=== PATIENT | male | born 1960 | race Caucasian/White ===

== ENCOUNTER 2017-11-27 15:21 | Inpatient (IN) | payer BC ==
[~2017-11-27] VITALS: Ht 177.8 cm; Wt 105.8 kg
[~2017-11-27 15:21] MED LIST: CELE50CA PO; LISI40TA PO; METF1000 PO
[2017-11-27 18:00] VITALS: BP 169/93; PULSE 86; RESP 18; O2SAT 98
[2017-11-27] MEDS ORDERED: ACETAMINOPHEN/HYDROcodone 325 MG/5 MG TAB PO PRN (18:30)
[2017-11-27] MEDS ORDERED: RESP: ALBUTEROL 2.5 MG/IPRATROPIUM 0.5 MG NEB (PRN) INH (18:30)
[2017-11-27] MEDS ORDERED: MAGNESIUM HYDROXIDE SUSP 30 ML CUP PO PRN (18:30)
[2017-11-27] MEDS ORDERED: METOCLOPRAMIDE HCL 10 MG/2 ML VIAL IV PUSH PRN (18:30)
[2017-11-27] MEDS ORDERED: BISACODYL 10 MG SUPP RECTAL PRN (18:30)
[2017-11-27] MEDS ORDERED: LACTULOSE SYRUP 20 GM/30 ML CUP PO PRN (18:30)
[2017-11-27] MEDS ORDERED: SENNOSIDES 8.6 MG TAB PO PRN (18:30)
[2017-11-27] MEDS ORDERED: CHLORHEXIDINE GLUCONATE 2 % 1 PACK (2 CLOTHS) TOP PRN (18:30)
[2017-11-27] MEDS ORDERED: MISCELLANEOUS NURSING INFORMATION XX SCH (18:30)
[2017-11-27] MEDS ORDERED: ACETAMINOPHEN 325 MG TAB PO PRN (18:30)
[2017-11-27] MEDS ORDERED: niCARdipine INJ 25 MG in SODIUM CHLOR 0.9% 250 ML INJ 240 ML IV PRN (18:30)
[2017-11-27] MEDS ORDERED: LABETALOL HCL 100 MG/20 ML VIAL IV PUSH PRN (18:30)
[2017-11-27] MEDS ORDERED: LISINOPRIL 10 MG TAB PO SCH (18:30)
[2017-11-27] MEDS ORDERED: ONDANSETRON HCL 4 MG/2 ML VIAL IV PUSH PRN (18:30)
[2017-11-27] MEDS ORDERED: SODIUM CHLORIDE 0.9% FLUSH 10 ML FLUSH IV FLUSH PRN (18:30)
[2017-11-27] MEDS: LISINOPRIL 20 MG TAB PO SCH (18:45)
--- NOTE | 2017-11-27 18:57 | HHI.HP ---
HPI Service Critical Care Medicine Primary Care Physician Unknown Admission Diagnosis Diagnosis: Chief Complaint: Headache Travel History International Travel<30 Days: No Contact w/Intl Traveler <30 Da: No Traveled to Known Affected Are: No History of Present Illness History of Present Illness HPI Is a 57-year-old man presents emerged from complaining of headache and elevated blood pressure. States that he was sick with flulike symptoms for the past couple weeks. He was taking numerous nzyz-xlg-lrrlzke medications. He has a history of hypertension was taking lisinopril. States on Tuesday began feeling sick and weak and dizzy while at work. Checked his blood pressure and it was 220s over 1 teens. He went to the emergency room at [facility] where he had a workup including imaging, CT, and IV blood pressure medication. Blood pressure came down and he felt improved. They adjusted his lisinopril to 40 mg daily. Over the past 2 days he has felt progressively worse, more headache, more vomiting, more dizziness and weakness. No significant visual changes. No history of previous similar symptoms. No chest pain or trouble breathing. Symptoms are worse again and today so he came to the emergency department. Patient was evaluated in the ER at [place] and subsequently accepted for transfer [facility] ICU in [place] by Dr. Jo. I evaluated the patient following his arrival to the ICU. At that time he was resting in bed complaining of some headache. He was on nicardipine gtt. at 2.5 mg/h. He denied any chest pain or shortness of breath. Head CT done at [facility] was negative for any intracranial hemorrhage. History Past Medical History Narrative Medical Hypertension Social History Alcohol Use: No Tobacco Use: No Allergies-Medications (Allergen,Severity, Reaction): Coded Allergies: No Known Allergies (Unverified , 11/27/17) Reported Meds & Prescriptions Reported Meds & Active Scripts Active Reported Celebrex (Celecoxib) 50 Mg Cap 50 Mg PO BID Lisinopril 40 Mg Tab 40 Mg PO DAILY Metformin (Metformin HCl) 1,000 Mg Tab 1,000 Mg PO BIDPC Review of Systems Except as stated in HPI: all other systems reviewed are Neg Review of Systems ROS Per history of present illness Physical Exam Physical Exam Physical Exam Narrative GENERAL: Well-appearing 57-year-old man, no acute distress. SKIN: Focused skin assessment warm/dry. HEAD: Atraumatic. Normocephalic. EYES: Pupils equal and round. No scleral icterus. No injection or drainage. ENT: No nasal bleeding or discharge. Mucous membranes pink and moist. NECK: Trachea midline. No JVD. CARDIOVASCULAR: Regular rate and rhythm. No murmur appreciated. RESPIRATORY: No accessory muscle use. Clear to auscultation. Breath sounds equal bilaterally. GASTROINTESTINAL: Abdomen soft, non-tender, nondistended. Hepatic and splenic margins not palpable. MUSCULOSKELETAL: No obvious deformities. No clubbing. No cyanosis. No edema. NEUROLOGICAL: Awake and alert. No obvious cranial nerve deficits. Motor grossly within normal limits. Normal speech. PSYCHIATRIC: Appropriate mood and affect; insight and judgment normal. Laboratory Labs from [facility] ER reviewed unremarkable Imaging Head CT negative for ICH Caprini VTE Risk Assessment Caprini VTE Risk Assessment: Mod/High Risk (score >= 2) Caprini Risk Assessment Model Point Value = 1 Point Value = 2 Point Value = 3 Point Value = 5 Age 41-60 Minor surgery BMI > 25 kg/m2 Swollen legs Varicose veins or History of unexplained or recurrent spontaneous Oral contraceptives or hormone replacement Sepsis (< 1 month) Serious lung disease, including pneumonia (< 1 month) Abnormal pulmonary function Acute myocardial infarction Congestive heart failure (< 1 month) History of inflammatory bowel disease Medical patient at bed rest Age 61-74 Arthroscopic surgery Major open surgery (> 45 min) Laparoscopic surgery (> 45 min) Malignancy Confined to bed (> 72 hours) Immobilizing plaster cast Central venous access Age >= 75 History of VTE Family history of VTE Factor V Leiden Prothrombin [id number] Lupus anticoagulant Anticardiolipin antibodies Elevated serum homocysteine Heparin-induced thrombocytopenia Other congenital or acquired thrombophilia Stroke (< 1 month) Elective arthroplasty Hip, pelvis, or leg fracture Acute spinal cord injury (< 1 month) Prophylaxis Regimen Total Risk Factor Score Risk Level Prophylaxis Regimen 0-1 Low Early ambulation 2 Moderate Order ONE of the following: *Sequential Compression Device (SCD) *Heparin 5000 units SQ BID 3-4 Higher Order ONE of the following medications: *Heparin 5000 units SQ TID *Enoxaparin/Lovenox 40 mg SQ daily (WT < 150 kg, CrCl > 30 mL/min) *Enoxaparin/Lovenox 30 mg SQ daily (WT < 150 kg, CrCl > 10-29 mL/min) *Enoxaparin/Lovenox 30 mg SQ BID (WT < 150 kg, CrCl > 30 mL/min) AND/OR *Sequential Compression Device (SCD) 5 or more Highest Order ONE of the following medications: *Heparin 5000 units SQ TID (Preferred with Epidurals) *Enoxaparin/Lovenox 40 mg SQ daily (WT < 150 kg, CrCl > 30 mL/min) *Enoxaparin/Lovenox 30 mg SQ daily (WT < 150 kg, CrCl > 10-29 mL/min) *Enoxaparin/Lovenox 30 mg SQ BID (WT < 150 kg, CrCl > 30 mL/min) AND *Sequential Compression Device (SCD) Assessment and Plan Assessment and Plan Hypertensive urgency Diabetes mellitus Headache Plan: Neuro: Follow neuro status. Head CT negative for bleed. Cardiovascular: Nicardipine gtt. to keep SBP less than 160 mmHg. Continue lisinopril 40 mg by mouth daily. Labetalol 20 mg IV every 4 hourly when necessary for SBP greater than 160. Added Norvasc 5 mg by mouth now and daily. Pulmonary: Supplemental O2 as needed. Bronchial dilators when necessary. GI/liver: Heart healthy diet. Zofran/Phenergan when necessary for nausea vomiting. Pepcid by mouth in view of nausea vomiting. Renal/: Follow urine output, monitor BUN/creatinine electrolytes. ID: No indication for antibiotics at this time Endocrine: Continue metformin. Watch for hyperglycemia and will use SSI for glycemic control if needed Prophylaxis: Pepcid, SCDs, Lovenox Consult and transfer to hospitalist service in a.m. for further medical management. Critical care will be available if needed. Tomer Villeda MD Nov 27, 2017 18:57
[2017-11-27] MEDS: metFORMIN HCL 500 MG TAB PO SCH (19:00)
[2017-11-27] MEDS ORDERED: niCARdipine 25 MG/NS 250 ML Vial2Bag or IV room IV PRN ×2 (19:15)
[2017-11-27 20:00] VITALS: BP 152/95; PULSE 91; RESP 26; TEMP 98.3; O2SAT 92
[2017-11-27] MEDS ORDERED: ENOXAPARIN SODIUM 40 MG/0.4 ML SYRINGE SQ SCH (20:00)
[2017-11-27] MEDS: DOCUSATE SODIUM 50 MG/SENNA 8.6 MG TAB PO SCH (21:00)
[2017-11-27] MEDS: FAMOTIDINE 20 MG TAB PO SCH (21:00)
[2017-11-27] MEDS: amLODIPine BESYLATE 5 MG TAB PO SCH (21:47)
[2017-11-27] MEDS: SODIUM CHLORIDE 0.9% FLUSH 10 ML FLUSH IV FLUSH SCH (21:49)
[2017-11-28] VITALS: BP 138/73; PULSE 89; RESP 19; O2SAT 98
[2017-11-28 04:00] VITALS: BP 144/88; PULSE 83; RESP 18; O2SAT 98
[2017-11-28] MEDS ORDERED: CHLORHEXIDINE GLUCONATE 2 % 1 PACK (2 CLOTHS) TOP SCH (04:00)
[2017-11-28 05:01] LABS: AUTOMATED NEUTROPHIL # 4.7 TH/MM3 (1.8-7.7); BASOPHIL % 0.2 % (0.0-2.0); EOSINOPHIL # 0.1 TH/MM3 (0-0.4); EOSINOPHIL % 1.2 % (0.0-4.0); HEMATOCRIT 43.3 % (39.0-51.0); HEMOGLOBIN 15.1 GM/DL (13.0-17.0); LYMPH % 23.6 % (9.0-44.0); LYMPHOCYTE # 1.7 TH/MM3 (1.0-4.8); MEAN CORPUSCULAR HEMOGLOBIN 33.2 PG (27.0-34.0); MEAN CORPUSCULAR HGB CONC 34.9 % (32.0-36.0); MEAN PLATELET VOLUME 8.5 FL (7.0-11.0); MONOCYTE # 0.9 TH/MM3 (0-0.9); PLATELET COUNT 79 TH/MM3 (150-450); RED BLOOD COUNT 4.55 MIL/MM3 (4.50-5.90); RED CELL DISTRIBUTION WIDTH 14.4 % (11.6-17.2); WHITE BLOOD COUNT 7.4 TH/MM3 (4.0-11.0)
[2017-11-28 05:22] LABS: ALBUMIN 3.3 GM/DL (3.4-5.0); AST (GOT) 31 U/L (15-37); BICARBONATE 27.2 MEQ/L (21.0-32.0); BLOOD UREA NITROGEN 12 MG/DL (7-18); CALCIUM 8.9 MG/DL (8.5-10.1); CHLORIDE 102 MEQ/L (98-107); GLOMERULAR FILTRATION RATE 100 ML/MIN (>89); GLUCOSE,RANDOM 130 MG/DL (74-106); SODIUM (NA) 138 MEQ/L (136-145)
[2017-11-28 05:23] LABS: ALT (GPT) 35 U/L (12-78)
[2017-11-28 05:25] LABS: ALKALINE PHOSPHATASE 68 U/L (45-117); TOTAL BILIRUBIN ADULT 1.1 MG/DL (0.2-1.0); TOTAL PROTEIN 7.4 GM/DL (6.4-8.2)
[2017-11-28] MEDS ORDERED: POTASSIUM CHLORIDE 25 MEQ EFFERVESCENT TAB PO ONE (09:00)
--- NOTE | 2017-11-28 09:00 | HHI.PR ---
Subjective Remarks The patient was feeling well. He was looking forward to going home soon. He said that high blood pressure runs in his family. He does tend to drink alcohol a lot but has not been doing so over the past week as he has been ill. He has been taking ucjz-hgn-wjbqdat cold medications. Headache and nausea are much improved. He is tolerating a diet. Discussed with nursing at the bedside. Objective Vitals Vital Signs Date Time Temp Pulse Resp B/P (MAP) Pulse Ox O2 Delivery O2 Flow Rate FiO2 11/28/17 04:00 83 11/28/17 04:00 83 18 144/88 (106) 98 11/28/17 00:00 89 11/28/17 00:00 89 19 138/73 (94) 98 11/27/17 20:00 98.3 91 26 152/95 (114) 92 11/27/17 18:00 86 18 169/93 (118) 98 I/O 11/27/17 11/27/17 11/27/17 11/28/17 11/28/17 11/28/17 07:00 15:00 23:00 07:00 15:00 23:00 Intake Total 260 ml Output Total 625 ml Balance -365 ml Intake IV Total 260 ml Output Urine Total 625 ml # Bowel Movements 0 Result Diagram: 11/28/17 0350 11/28/17 0350 Objective Remarks GENERAL: No distress. SKIN: Focused skin assessment warm/dry. HEAD: Atraumatic. Normocephalic. EYES: Pupils equal and round. No scleral icterus. No injection or drainage. ENT: No nasal bleeding or discharge. Mucous membranes pink and moist. NECK: Trachea midline. No JVD. CARDIOVASCULAR: Regular rate and rhythm. No murmur appreciated. RESPIRATORY: No accessory muscle use. Clear to auscultation. Breath sounds equal bilaterally. GASTROINTESTINAL: Abdomen soft, non-tender, nondistended. Hepatic and splenic margins not palpable. MUSCULOSKELETAL: No obvious deformities. No clubbing. No cyanosis. No edema. NEUROLOGICAL: Awake and alert. No obvious cranial nerve deficits. Motor grossly within normal limits. Normal speech. PSYCHIATRIC: Appropriate mood and affect; insight and judgment normal. Medications and IVs Current Medications Medications (Trade) Dose Ordered Sig/Andi Route Start Time Stop Time Status Last Admin (NS Flush) 2 ml UNSCH PRN IV FLUSH 11/27/17 18:30 (NS Flush) 2 ml BID IV FLUSH 11/27/17 21:00 11/28/17 10:26 (Tylenol) 650 mg Q6H PRN PO 11/27/17 18:30 ([place] 5-325 Mg) 1 tab Q4H PRN PO 11/27/17 18:30 (Pepcid) 20 mg Q12HR PO 11/27/17 21:00 11/28/17 09:48 (Zofran Inj) 4 mg Q6H PRN IV PUSH 11/27/17 18:30 (Reglan Inj) 10 mg Q6H PRN IV PUSH 11/27/17 18:30 (Duoneb Neb) 1 ampule Q2HR NEB PRN INH 11/27/17 18:30 (Lovenox Inj) 40 mg Q24H SQ 11/27/17 20:00 11/27/17 21:49 Miscellaneous Information 1 Q361D XX 11/27/17 18:30 (Chlorhexidine 2% Cloth) 3 pack Taper DAILY@04 TOP 11/28/17 04:00 11/24/18 03:59 (Chlorhexidine 2% Cloth) 3 pack UNSCH PRN TOP 11/27/17 18:30 (Lucia-Colace) 1 tab BID PO 11/27/17 21:00 11/28/17 09:48 (Milk Of Magnesia Liq) 30 ml Q12H PRN PO 11/27/17 18:30 (Senokot) 17.2 mg Q12H PRN PO 11/27/17 18:30 (Dulcolax Supp) 10 mg DAILY PRN RECTAL 11/27/17 18:30 (Lactulose Liq) 30 ml DAILY PRN PO 11/27/17 18:30 (Trandate Inj) 20 mg Q4H PRN IV PUSH 11/27/17 18:30 (Glucophage) 1,000 mg BIDPC PO 11/27/17 19:00 11/28/17 09:48 (Prinivil) 40 mg DAILY PO 11/27/17 18:45 11/28/17 09:48 (Norvasc) 5 mg DAILY PO 11/27/17 19:15 11/28/17 09:48 Nicardipine HCl 25 mg/Sodium Chloride 250 ml @ 50 mls/hr TITRATE PRN IV 11/27/17 19:15 (NovoLOG SUPPLEMENTAL SCALE) 1 ACHS SLIDING SCALE SQ 11/28/17 12:00 A/P Assessment and Plan Hypertensive emergency/ [place] Head CT negative for acute process. S/p Cardene gtt. Blood pressure is stable at this time. Headache is much improved. - Nicardipine gtt if needed. - Continue lisinopril 40 mg by mouth daily. - Added Norvasc 5 mg by mouth now and daily. Titrate as needed. - Labetalol 20 mg IV every 4 hourly when necessary for SBP greater than 160. - Tylenol as needed for headache. N/V S/t above. Seems resolved. - antiemetics as needed. - blood pressure control. - ADAT. Thrombocytopenia Unsure of baseline. - follow CBC. DM On metformin as an outpt. - Continue metformin. - insulin sliding scale. Hypokalemia Likely secondary to nausea and vomiting. - Replete and monitor. - Advance diet as tolerated. PPx: Lovenox Discharge Planning If blood pressure remains well controlled then d/c later today, otherwise transfer pt to floor if Cardene gtt not required [place] Jay DO Nov 28, 2017 09:00
[2017-11-28] MEDS: FAMOTIDINE 20 MG TAB PO SCH (09:48)
[2017-11-28] MEDS: amLODIPine BESYLATE 5 MG TAB PO SCH (09:48)
[2017-11-28] MEDS: LISINOPRIL 20 MG TAB PO SCH (09:48)
[2017-11-28] MEDS: metFORMIN HCL 500 MG TAB PO SCH (09:48)
[2017-11-28] MEDS: DOCUSATE SODIUM 50 MG/SENNA 8.6 MG TAB PO SCH (09:48)
[2017-11-28] MEDS: SODIUM CHLORIDE 0.9% FLUSH 10 ML FLUSH IV FLUSH SCH (10:26)
[2017-11-28] MEDS ORDERED: INSULIN ASPART SUPPLEMENTAL SCALE SQ SCH (12:00)
[2017-11-28] MEDS ORDERED: AMLO5 PO (15:24)
--- NOTE | 2017-11-28 15:25 | HHI.DCPOC ---
Discharge Care Plan Diagnosis: (1) Hypertensive emergency (2) Nausea & vomiting (3) Headache Goals to Promote Your Health * To prevent worsening of your condition and complications * To maintain your health at the optimal level Directions to Meet Your Goals Take your medications as prescribed Follow your dietary instruction Follow activity as directed Keep your appointments as scheduled Take your immunizations and boosters as scheduled If your symptoms worsen call your PCP, if no PCP go to Urgent Care Center or Emergency Room Smoking is Dangerous to Your Health. Avoid second hand smoke Call the 24-hour hour crisis hotline for domestic abuse at [place] Jay DO Nov 28, 2017 15:25
== END 2017-11-28 18:33 | disposition home or self-care (01) | DRG 305 ==
LOC: NEDDLT 15:21 → HIMW 15:26
PROVIDERS: ADMIT Internal Medicine; ATTEND Internal Medicine
DX: I16.1 Hypertensive emergency (principal); D69.6 Thrombocytopenia, unspecified; E11.9 Type 2 diabetes mellitus without complications; R51 Headache; Z79.84 Long term (current) use of oral hypoglycemic drugs; R11.2 Nausea with vomiting, unspecified; E87.6 Hypokalemia; I10 Essential (primary) hypertension
CPT/HCPCS: 80053; 82948; 85025; 87641; J1650; J1815